=== PATIENT | female | born 1940 | race Caucasian/White ===

== ENCOUNTER 2021-06-29 16:21 | Inpatient (IN) ==
[2021-06-29] MEDS ORDERED: SODIUM CHLORIDE 0.9% 1,000 ML IV STA (16:40)
[2021-06-29 17:17] LABS: Basophils % 0.1 % (0.0-0.8); Hematocrit 32.1 VOL% (35.7-47.0); Hemoglobin 11.2 GM/DL (12.0-16.0); Immature Granulocytes % 0.6 %; Immature Granulocytes Absolute 0.09 #; Lymphocytes # 0.5 10*3/uL (1.4-4.0); Lymphocytes % 3.3 % (21.3-54.2); Mean Corpuscular HGB Conc 34.9 GM/DL (32-36); Mean Corpuscular Volume 85.8 FL (87-102); Mean Platelet Volume 10.5 FL (9.6-12.0); Monocytes % 11.3 % (1.7-12.7); Neutrophils % 84.7 % (38.7-73.9); Platelet Count 191 T/CUMM (130-400); Red Blood Count 3.74 MC/CUMM (3.8-5.5); Red Cell Distribution Width 13.2 % (9.3-17.3); White Blood Count 14.6 T/CUMM (4-12)
[2021-06-29 17:28] LABS: Bacteria,Urine Occasional /HPF (Few); Bilirubin,Urine Negative (Negative); Blood, Urine Small mg/dL (Negative); Glucose,Urine (UA) Negative (Negative); Ketones,Urine 20 mg/dL (Negative); Mucus,Urine Few /LPF (Occasional); Nitrite,Urine Negative (Negative); Protein,Urine 30 MG/DL; RBC,Urine 2 /HPF (0-4); Squamous Epithelial Cell,Urine Occasional /HPF (0-10); Urine Appearance Slightly Hazy (Clear); Urine Color Amber (Yellow); Urine Specific Gravity 1.019 (1.001-1.035); Urine Urobilinogen < 2.0 EU/DL (0.2-1.0)
[2021-06-29 17:41] LABS: Albumin 2.7 G/DL (3.4-5.0); Bilirubin,Total 1.1 MG/DL (0.20-1.00); Calcium 8.5 MG/DL (8.5-10.1); Osmolality,Calculated 244.1 MOS/KG (273-304); Potassium 3.5 MMOL/L (3.5-5.1)
[2021-06-29] MEDS ORDERED: POTASSIUM CHLORIDE 20 MEQ TABLET PO STA (17:52)
[2021-06-29] MEDS ORDERED: ONDANSETRON 4 MG/2 ML VIAL IV PRN (17:53)
[2021-06-29 18:21] LABS: Band Neutrophils 13 % (0-10); Lymphocytes 8 % (20-55); Metamyelocytes 1 %; Segmented Neutrophils 74 % (50-85); Total Cells Counted 100; Toxic Granulation 1+
[2021-06-29 18:22] LABS: Microcytosis Slight; Platelet Estimate Normal
[2021-06-29] MEDS: PROPRANOLOL 40 MG TABLET PO SCH (21:13)
[2021-06-29] MEDS: DOCUSATE SODIUM 100 MG CAPSULE PO SCH (21:13)
[2021-06-29] MEDS: ZALEPLON 5 MG CAPSULE PO SCH (21:13)
[2021-06-29] MEDS: SODIUM CHLORIDE 0.9% 1,000 ML IV SCH (21:17)
[2021-06-29] MEDS: ACETAMINOPHEN 325 MG TABLET PO PRN (23:30)
[2021-06-30 06:12] LABS: Basophils # 0.1 10*3/uL (0.0-0.2); Basophils % 0.4 % (0.0-0.8); Eosinophils % 0.1 % (0.00-10.9); Hematocrit 30.5 VOL% (35.7-47.0); Hemoglobin 10.5 GM/DL (12.0-16.0); Immature Granulocytes % 3.5 %; Immature Granulocytes Absolute 0.54 #; Lymphocytes # 0.5 10*3/uL (1.4-4.0); Lymphocytes % 3.5 % (21.3-54.2); Mean Corpuscular HGB Conc 34.4 GM/DL (32-36); Mean Corpuscular Volume 87.6 FL (87-102); Mean Platelet Volume 11.5 FL (9.6-12.0); Monocytes % 17.8 % (1.7-12.7); Neutrophils % 74.7 % (38.7-73.9); Platelet Count 189 T/CUMM (130-400); Red Blood Count 3.48 MC/CUMM (3.8-5.5); Red Cell Distribution Width 13.5 % (9.3-17.3); White Blood Count 15.3 T/CUMM (4-12)
[2021-06-30 06:34] LABS: Albumin 2.4 G/DL (3.4-5.0); Bilirubin,Total 1.8 MG/DL (0.20-1.00); Calcium 8.2 MG/DL (8.5-10.1); Osmolality,Calculated 247.6 MOS/KG (273-304); Potassium 4.1 MMOL/L (3.5-5.1); Total Protein 5.3 G/DL (6.4-8.2)
[2021-06-30 07:17] LABS: Band Neutrophils 1 % (0-10); Eosinophils 1 % (0-10); Lymphocytes 5 % (20-55); Metamyelocytes 2 %; Platelet Estimate Adequate; Promyelocytes 1 %; Segmented Neutrophils 69 % (50-85); Total Cells Counted 100
[2021-06-30] MEDS: PROPRANOLOL 40 MG TABLET PO SCH ×3 (09:39→20:15)
[2021-06-30] MEDS: DOCUSATE SODIUM 100 MG CAPSULE PO SCH ×2 (09:39→20:16)
[2021-06-30] MEDS: PANTOPRAZOLE 40 MG TABLET PO SCH (09:39)
[2021-06-30] MEDS: ACETAMINOPHEN 325 MG TABLET PO PRN (11:37)
[2021-06-30] MEDS: metroNIDAZOLE 500 MG TABLET PO SCH ×3 (11:37→23:25)
[2021-06-30] MEDS: SODIUM CHLORIDE 0.9% 1,000 ML IV SCH (11:44)
[2021-06-30] MEDS: ZALEPLON 5 MG CAPSULE PO SCH (20:16)
[2021-07-01] MEDS: SODIUM CHLORIDE 0.9% 1,000 ML IV SCH ×2 (00:14→17:57)
[2021-07-01] MEDS: SODIUM CHLORIDE 3% INJ 500 ML IV SCH (08:30)
[2021-07-01] MEDS: metroNIDAZOLE 500 MG TABLET PO SCH ×4 (09:38→23:23)
[2021-07-01] MEDS: PANTOPRAZOLE 40 MG TABLET PO SCH (09:38)
[2021-07-01] MEDS: PROPRANOLOL 40 MG TABLET PO SCH ×3 (09:38→20:34)
[2021-07-01 13:10] LABS: Albumin 2.2 G/DL (3.4-5.0); Bilirubin,Total 0.85 MG/DL (0.20-1.00); Calcium 8.3 MG/DL (8.5-10.1); Total Protein 5.6 G/DL (6.4-8.2)
[2021-07-01 13:11] LABS: Osmolality,Calculated 234.6 MOS/KG (273-304); Potassium 3.5 MMOL/L (3.5-5.1)
[2021-07-01 13:47] LABS: Basophils # 0.1 10*3/uL (0.0-0.2); Basophils % 0.3 % (0.0-0.8); Eosinophils % 0.1 % (0.00-10.9); Hematocrit 34.6 VOL% (35.7-47.0); Hemoglobin 12.1 GM/DL (12.0-16.0); Immature Granulocytes Absolute 0.67 #; Lymphocytes # 0.8 10*3/uL (1.4-4.0); Lymphocytes % 3.6 % (21.3-54.2); Mean Corpuscular Volume 85.4 FL (87-102); Monocytes % 12.5 % (1.7-12.7); Neutrophils % 80.5 % (38.7-73.9); Platelet Count 280 T/CUMM (130-400); Red Blood Count 4.05 MC/CUMM (3.8-5.5); Red Cell Distribution Width 13.6 % (9.3-17.3); White Blood Count 22.3 T/CUMM (4-12)
[2021-07-01 14:04] LABS: Band Neutrophils 6 % (0-10); Lymphocytes 3 % (20-55); Segmented Neutrophils 87 % (50-85)
[2021-07-01 14:05] LABS: Burr Cells Few; Metamyelocytes 2 %; Ovalocytes Few; Platelet Estimate Normal; Total Cells Counted 100
[2021-07-01] MEDS: DOCUSATE SODIUM 100 MG CAPSULE PO SCH ×2 (14:10→20:33)
[2021-07-01] MEDS: LORazepam 0.5 MG TABLET PO SCH (20:34)
[2021-07-01] MEDS: ZALEPLON 5 MG CAPSULE PO SCH (20:34)
[2021-07-02 01:51] LABS: Basophils % 0.3 % (0.0-0.8); Eosinophils # 0.2 10*3/uL (0.0-0.87); Eosinophils % 1.2 % (0.00-10.9); Hematocrit 28.1 VOL% (35.7-47.0); Hemoglobin 9.8 GM/DL (12.0-16.0); Immature Granulocytes Absolute 0.26 #; Lymphocytes % 7.4 % (21.3-54.2); Mean Corpuscular HGB Conc 34.9 GM/DL (32-36); Mean Corpuscular Volume 85.7 FL (87-102); Mean Platelet Volume 10.8 FL (9.6-12.0); Monocytes % 15.4 % (1.7-12.7); Neutrophils % 73.7 % (38.7-73.9); Platelet Count 246 T/CUMM (130-400); Red Blood Count 3.28 MC/CUMM (3.8-5.5); Red Cell Distribution Width 13.5 % (9.3-17.3); White Blood Count 12.9 T/CUMM (4-12)
[2021-07-02 02:25] LABS: Eosinophils 2 % (0-10); Lymphocytes 8 % (20-55); Platelet Estimate Adequate; Segmented Neutrophils 77 % (50-85); Total Cells Counted 100
[2021-07-02] MEDS: metroNIDAZOLE 500 MG TABLET PO SCH (05:57)
[2021-07-02] MEDS ORDERED: RIZATRIPTAN 5 MG PO PRN (07:16)
[2021-07-02] MEDS: SODIUM CHLORIDE 0.9% 1,000 ML IV SCH ×3 (07:37→23:46)
[2021-07-02] MEDS: SODIUM CHLORIDE 3% INJ 500 ML IV SCH (08:17)
[2021-07-02] MEDS: PANTOPRAZOLE 40 MG TABLET PO SCH (09:05)
[2021-07-02] MEDS: PROPRANOLOL 40 MG TABLET PO SCH ×3 (09:05→20:48)
[2021-07-02] MEDS: DOCUSATE SODIUM 100 MG CAPSULE PO SCH ×2 (09:05→20:48)
[2021-07-02] MEDS: busPIRone 10 MG TABLET PO SCH ×2 (09:05→20:49)
[2021-07-02] MEDS: VANCOMYCIN 50 MG/ML 60 ML/BOTTLE PO SCH ×3 (13:30→23:45)
[2021-07-02] MEDS: ZALEPLON 5 MG CAPSULE PO SCH (20:48)
[2021-07-02] MEDS: LORazepam 0.5 MG TABLET PO SCH (20:48)
[2021-07-02] MEDS ORDERED: AMITRIPTYLINE 50 MG TABLET PO SCH (21:00)
[2021-07-03] MEDS: SODIUM CHLORIDE 0.9% 1,000 ML IV SCH (01:17)
[2021-07-03 06:18] LABS: Calcium 7.6 MG/DL (8.5-10.1); Osmolality,Calculated 264.5 MOS/KG (273-304); Potassium 2.8 MMOL/L (3.5-5.1)
[2021-07-03] MEDS ORDERED: LEVOTHYROXINE 50 MCG TABLET PO SCH (06:30)
[2021-07-03] MEDS: VANCOMYCIN 50 MG/ML 60 ML/BOTTLE PO SCH ×2 (06:44→11:29)
[2021-07-03] MEDS: PANTOPRAZOLE 40 MG TABLET PO SCH (08:48)
[2021-07-03] MEDS: DOCUSATE SODIUM 100 MG CAPSULE PO SCH (08:48)
[2021-07-03] MEDS: busPIRone 10 MG TABLET PO SCH (08:48)
[2021-07-03] MEDS: PROPRANOLOL 40 MG TABLET PO SCH (08:48)
[2021-07-03] MEDS ORDERED: POTASSIUM CHLORIDE 10 MEQ TABLET PO SCH (09:00)
[2021-07-03 12:31] VITALS: BP 123/71
== END 2021-07-03 12:45 | disposition home or self-care (01) | DRG 372 ==
LOC: EDUNIT# → EDBD → N.EDINP 16:21 → N.ED 16:21 → N.3E 18:51
PROVIDERS: ADMIT Family Medicine; ATTEND Family Medicine